=== PATIENT | female | born 1990 | race American Indian/Alaskan Native ===

== ENCOUNTER 2019-03-04 18:07 | Emergency (ER) | payer MEDICAID ==
--- NOTE | 2019-03-04 18:44 | Event Note ---
ED Screening Note Date of service: 03/04/19 Time: 18:40 ED Screening Note: 28 y/o female feels tired, headache and vaginal discharge. Pre eclampsia. This initial assessment/diagnostic orders/clinical plan/treatment(s) is/are subject to change based on patients health status, clinical progression and re- assessment by fellow clinical providers in the ED. Further treatment and workup at subsequent clinical providers discretion. Patient/guardian urged not to elope from the ED as their condition may be serious if not clinically assessed and managed. Initial orders include:
[2019-03-04 19:23] LABS: Basophils % (Auto) 0.8 % (0.0-1.8); Eosinophils % (Auto) 1.4 % (0.0-4.3); Hematocrit 32.8 % (30.3-42.9); Hemoglobin 10.8 gm/dl (10.1-14.3); Lymphocytes # (Auto) 1.6 K/mm3 (1.2-5.4); Lymphocytes % (Auto) 45.1 % (13.4-35.0); Mean Corpuscular HGB Conc 33 % (30-34); Mean Corpuscular Volume 88 fl (79-97); Monocytes # (Auto) 0.3 K/mm3 (0.0-0.8); Monocytes % (Auto) 8.7 % (0.0-7.3); Platelet Count 351 K/mm3 (140-440); Red Blood Count 3.72 M/mm3 (3.65-5.03); Red Cell Distribution Width 14.9 % (13.2-15.2)
[2019-03-04 19:41] LABS: BUN/Creatinine Ratio 8; Blood Urea Nitrogen 5 mg/dL (7-17); Calcium 9.2 mg/dL (8.4-10.2); Hemolysis Index 15
[2019-03-04 20:26] LABS: Bilirubin,Urine NEG (Negative); Blood,Urine LG (Negative); Color,Urine Yellow (Yellow); Mucus,Urine 1+ /HPF; Protein,Urine <15 mg/dL mg/dL (Negative); Urobilinogen,Urine < 2.0 mg/dL (<2.0)
[2019-03-04] MEDS ORDERED: ACETAMINOPHEN 325 MG TAB PO ONE (21:09)
--- NOTE | 2019-03-04 21:18 | Emergency Department Report ---
HPI - General Chief Complaint: Weakness Time Seen by Provider: 03/04/19 18:40 - HPI HPI: 28 yo AA F presents to the ED with the complaint of a generalized headache, fatigue, and a fishy smell from her vagina. The patient just had a vaginal delivery 2 weeks ago at [place] indicator remained. She still has some mild vaginal bleeding related to the delivery. She denies any abdominal pain, pelvic pain, fever, nausea, vomiting. The patient was diagnosed with preeclampsia and delivered at 36.5 weeks. She is not on any medication for it. The headache is currently 8 out of 10 in intensity. No vision change, slurred speech or any neurological deficits. ED Past Medical Hx - Past Medical History Previous Medical History?: No - Surgical History Past Surgical History?: No - Social History Smoking Status: Never Smoker Substance Use Type: None - Medications Home Medications: Home Medications Medication Instructions Recorded Confirmed Last Taken Type hydrALAZINE [Apresoline TAB] 10 mg PO Q8H #42 tablet 03/04/19 Unknown Rx ED Review of Systems ROS: Stated complaint: POST PREG ISSUES Other details as noted in HPI Comment: All other systems reviewed and negative Constitutional: denies: chills, fever Eyes: denies: eye pain, vision change ENT: denies: ear pain, throat pain Respiratory: denies: cough, shortness of breath Cardiovascular: denies: chest pain, palpitations Gastrointestinal: denies: abdominal pain, vomiting Genitourinary: discharge. denies: dysuria Musculoskeletal: denies: back pain, arthralgia Skin: denies: rash, lesions Neurological: headache. denies: numbness, paresthesias Physical Exam - Physical Exam Vital Signs: Vital Signs 03/04/19 03/04/19 18:40 20:30 Temperature 98.6 F 98.2 F Pulse Rate 78 71 Respiratory 18 16 Rate Blood Pressure 149/100 Blood Pressure 151/94 [Left] O2 Sat by Pulse 99 100 Oximetry Physical Exam: GENERAL: The patient is well-developed well-nourished. HENT: Normocephalic. Atraumatic. Patient has moist mucous membranes. EYES: Extraocular motions are intact. Pupils equal reactive to light bilaterally. No nystagmus. NECK: Supple. Trachea is midline. CHEST/LUNGS: Clear to auscultation. There is no respiratory distress noted. HEART/CARDIOVASCULAR: Regular. There is no tachycardia. There is no murmur. ABDOMEN: Abdomen is soft, nontender. Patient has normal bowel sounds. There is no abdominal distention. SKIN: Skin is warm and dry. NEURO: The patient is awake, alert, and oriented. The patient is cooperative. The patient has no focal neurologic deficits. Normal speech. Cranial nerves II through XII grossly intact. MUSCULOSKELETAL: There is no tenderness or deformity. There is no evidence of ac tulalip injury. PELVIC: There is a small amount of blood and motors discharge seen in the va yudi. No obvious cervical lesions or abnormalities. ED Course Vital Signs 03/04/19 03/04/19 18:40 20:30 Temperature 98.6 F 98.2 F Pulse Rate 78 71 Respiratory 18 16 Rate Blood Pressure 149/100 Blood Pressure 151/94 [Left] O2 Sat by Pulse 99 100 Oximetry - Reevaluation(s) Reevaluation #1: 03/05/19 01:10 Pelvic exam done with nurse Roberts at bedside assisting. - Consultations Consultation #1: I spoke to the [facility] on-call, Dr. Bryon Cook, who listened to the case presentation regarding the patient's history of preeclampsia, lab and imaging results, and the patient's blood pressure. Dr. Cook agrees with the plan for starting the patient on antihypertensive medication and she can follow-up in the office tomorrow outpatient. 03/05/19 01:11 ED Medical Decision Making - Lab Data Result diagrams: 03/04/19 19:04 03/04/19 19:04 - Radiology Data Radiology results: report reviewed CT of the head does not show any acute intracranial process including no ischemia, shift, mass, bleeding or skull fracture. - Medical Decision Making This patient presents to emergency department with complaint of a headache, some fatigue, malodorous vaginal discharge and history of preeclampsia. Examination the patient does not have any focal, motor or sensory deficits in her cranial nerves are intact. CT scan of the head without contrast does not show any bleed, shift, mass, ischemia, or any other acute process. A pelvic examination was done and wet prep were sent that came back positive for bacterial vaginosis. Rest the patient's labs are unremarkable. Patient was given a 2 g dose of Flagyl to treat the bacterial vaginosis. She knows to avoid breast-feeding for the next 24 hours. The patient was started on some hydralazine. The [facility] was contacted and agrees with the plan for treatment of the hypertension and outpatient follow-up. She will return to the ER with any worsening of her symptoms or any acute distress. - Differential Diagnosis BV, UTI, tension headache, migraine, preeclampsia Critical Care Time: No Critical care attestation.: If time is entered above; I have spent that time in minutes in the direct care of this critically ill patient, excluding procedure time. ED Disposition Clinical Impression: hypertension, Bacterial vaginosis Disposition: TO HOME OR SELFCARE Is pt being admited?: No Condition: Stable Instructions: Bacterial Vaginosis (ED), Hypertension (ED) Additional Instructions: Please follow-up with your [facility] in the next few days, or I have also given you a referral for another local [facility], Dr. Bryon Cook. Try and stay away from foods are high in salt and caffeinated products. I'm starting you on a blood pressure medication called hydralazine. Keep a blood pressure log. Please avoid breast-feeding for about 24 hours after getting the Flagyl this nicol coon. Return to the emergency Department with any worsening of your symptoms or any acute distress. Prescriptions: hydrALAZINE [Apresoline TAB] 10 mg PO Q8H #42 tablet Referrals: BRYON COOK MD [Staff Physician] - 24 Hours Forms: STI Treatment and Prevention Time of Disposition: 23:54
[2019-03-04 21:19] LABS: Alanine Aminotransferase 14 units/L (7-56); Albumin 4.4 g/dL (3.9-5)
[2019-03-04 21:21] LABS: Bilirubin,Direct < 0.2 mg/dL (0-0.2)
--- NOTE | 2019-03-04 21:59 | Cat Scan Report ---
CT head/brain wo con INDICATION: headache. preeclampsia. TECHNIQUE: Routine CT head without contrast. All CT scans at this location are performed using CT dos e reduction for ALARA by means of automated exposure control. COMPARISON: None. FINDINGS: BRAIN / INTRACRANIAL CONTENTS: No acute hemorrhage, mass effect, midline shift, or hydrocephalus. No appreciable acute large territorial or lacunar infarct. No chronic infarct or focal atrophy. Normal b rain volume and ventricular/sulcal size for age. ORBITS: No significant abnormality of visualized orbits. SINUSES / MASTOIDS: No significant abnormality of visualized sinuses and mastoid air cells. ADDITIONAL FINDINGS: None. IMPRESSION: 1. No acute intracranial abnormality. Signer Name: Sivakumar Cardenas MD Signed: 03/04/2019 9:55 PM Workstation Name: [id number]
[2019-03-04] MEDS ORDERED: metroNIDAZOLE 500 MG TAB PO ONE (23:21)
[2019-03-04] MEDS ORDERED: hydrALAZINE 25 MG TAB PO ONE (23:30)
[2019-03-04 23:42] VITALS: BP 151/101
== END 2019-03-05 00:05 | disposition home or self-care (01) ==
LOC: ED 18:07
DX: O86.13 Vaginitis following delivery (principal); B96.89 Other specified bacterial agents as the cause of diseases classified elsewhere; O16.5 Unspecified maternal hypertension, complicating the puerperium; Z91.013 Allergy to seafood
CPT/HCPCS: 36415; 70450; 80048; 80076; 81001; 84443; 85025; 87210; 87591